=== PATIENT | male | born 1955 | race Caucasian/White ===

== ENCOUNTER 2016-07-20 05:46 | Inpatient (IN) | payer OTHER ==
[~2016-07-20] VITALS: Ht 188 cm; Wt 217.7 kg
[2016-07-20 05:46] VITALS: BP_SYST 165
[2016-07-20] MEDS ORDERED: LISI40TA4 PO (06:19)
[2016-07-20] MEDS ORDERED: GLU500 PO (06:19)
[2016-07-20] MEDS ORDERED: HYDR25TA4 PO (06:20)
[2016-07-20] MEDS ORDERED: IPRATROPIUM/ALBUTEROL SULFATE 3 ML AMPUL.NEB INH ONE (06:30)
[2016-07-20 07:14] LABS: BASOPHILS # (AUTO) 0.1 K/uL (0.0-0.2); BASOPHILS % (AUTO) 1.2 % (0.0-2.0); EOSINOPHILS # (AUTO) 0.1 K/uL (0.0-0.4); EOSINOPHILS % (AUTO) 0.8 % (0.0-4.0); HEMATOCRIT 47.6 % (36-54); HEMOGLOBIN 15.6 g/dL (14.0-18.0); LYMPHOCYTES % (AUTO) 27.7 % (20.5-51.5); MEAN CORPUSCULAR HEMOGLOBIN 28 pg (27-31); MEAN CORPUSCULAR HGB CONC 33 % (32-36); MEAN CORPUSCULAR VOLUME 85 fL (79.0-98.0); MONOCYTES # (AUTO) 0.5 K/uL (0.0-1.0); MONOCYTES % (AUTO) 6.2 % (1.7-9.3); NEUTROPHILS # (AUTO) 4.7 K/uL (1.8-7.7); NEUTROPHILS % (AUTO) 64.1 % (40.0-70.0); PLATELET COUNT (AUTO) 213 K/uL (130-430); RED CELL DISTRIBUTION WIDTH 14.2 % (9.0-15.0); WHITE BLOOD COUNT (AUTO) 7.4 K/uL (4.8-10.8)
[2016-07-20 08:01] LABS: CALCIUM 9.4 mg/dL (8.4-11.0); CREATININE 1.11 mg/dL (0.55-1.30)
[2016-07-20 08:05] LABS: TOTAL BILIRUBIN 0.9 mg/dL (0.0-1.0); TOTAL PROTEIN, SERUM 7.1 g/dL (6.4-8.3)
[2016-07-20] MEDS ORDERED: NITROGLYCERIN 1 INCH (GM) OINT. TP ONE (08:15)
[2016-07-20] MEDS ORDERED: ASPIRIN 81 MG TAB.CHEW PO ONE (08:15)
[2016-07-20] MEDS ORDERED: FUROSEMIDE 20 MG/2 ML VIAL IVP ONE (08:30)
[2016-07-20 09:34] VITALS: BP_SYST 163
[2016-07-20] MEDS ORDERED: INSULIN REGULAR, HUMAN 100 UNITS/ML, 10 ML VIAL (novoLIN R) SUBCUT PRN (11:00)
[2016-07-20] MEDS ORDERED: DEXTROSE 50% JECT 50 ML DISP.SYRIN IVP PRN (11:00)
[2016-07-20] MEDS ORDERED: *HEPARIN PER PHARMACY XX ONE (11:00)
[2016-07-20 11:28] VITALS: BP_SYST 132
[2016-07-20] MEDS ORDERED: HEPARIN SODIUM,PORCINE 2000 UNITS/0.4 ML BOLUS IVP PRN (11:45)
[2016-07-20] MEDS ORDERED: GLUCOSE 15 GM GEL (in 37.5 GM TUBE) PO PRN ×2 (11:45)
[2016-07-20] MEDS ORDERED: HEPARIN SODIUM,PORCINE 5000 UNITS/ML VIAL IV ONE (11:45)
[2016-07-20] MEDS ORDERED: DEXTROSE 50%-WATER 50 ML DISP.SYRIN IVP PRN ×2 (11:45)
[2016-07-20] MEDS ORDERED: METOPROLOL TARTRATE 25 MG TABLET PO ONE (11:45)
[2016-07-20] MEDS: HEPARIN 25,000 UNITS in 250 ML PREMIX IV PRN ×2 (13:35→20:24)
[2016-07-20] MEDS: ACETAMINOPHEN 325 MG TABLET PO PRN ×2 (15:07→20:53)
[2016-07-20 15:38] VITALS: BP_SYST 141
[2016-07-20] MEDS: HEPARIN SODIUM,PORCINE 3000 UNITS/0.6 ML BOLUS IVP PRN (20:22)
[2016-07-20 20:35] VITALS: BP_SYST 129
[2016-07-20] MEDS: METOPROLOL TARTRATE 25 MG TABLET PO SCH (20:37)
[2016-07-21] VITALS (8 sets, daily range): BP systolic 117–167
[2016-07-21] MEDS: HEPARIN SODIUM,PORCINE 3000 UNITS/0.6 ML BOLUS IVP PRN (02:34)
[2016-07-21] MEDS: HEPARIN 25,000 UNITS in 250 ML PREMIX IV PRN ×2 (02:35→07:35)
[2016-07-21] MEDS: ACETAMINOPHEN 325 MG TABLET PO PRN (06:46)
[2016-07-21] MEDS: ASPIRIN 325 MG TABLET (ECOTRIN) PO SCH (08:37)
[2016-07-21] MEDS: LISINOPRIL 20 MG TABLET PO SCH (08:40)
[2016-07-21] MEDS: METOPROLOL TARTRATE 25 MG TABLET PO SCH ×2 (08:41→21:19)
[2016-07-21] MEDS ORDERED: PANTOPRAZOLE SODIUM 40 MG TAB PO ONE (11:15)
[2016-07-22] VITALS: BP_SYST 142
[2016-07-22 05:07] VITALS: BP_SYST 139
[2016-07-22] MEDS: METOPROLOL TARTRATE 25 MG TABLET PO SCH (08:40)
[2016-07-22] MEDS: LISINOPRIL 20 MG TABLET PO SCH (08:41)
[2016-07-22] MEDS: ASPIRIN 325 MG TABLET (ECOTRIN) PO SCH (08:41)
[2016-07-22] MEDS ORDERED: PANTOPRAZOLE SODIUM 40 MG TAB PO SCH (09:00)
[2016-07-22 09:27] VITALS: BP_SYST 156
[2016-07-22 11:06] VITALS: BP_SYST 156
[2016-07-22 11:57] VITALS: BP_SYST 140
== END 2016-07-22 13:00 | disposition home or self-care (01) | DRG 292 ==
LOC: SED 05:46 → STU 08:31
PROVIDERS: ADMIT Internal Medicine Hospice and Palliative Medicine; ATTEND Internal Medicine Hospice and Palliative Medicine
DX: I11.0 Hypertensive heart disease with heart failure (principal); J98.11 Atelectasis; Z68.44 Body mass index [BMI] 60.0-69.9, adult; I50.31 Acute diastolic (congestive) heart failure; E11.9 Type 2 diabetes mellitus without complications; E66.01 Morbid (severe) obesity due to excess calories; K21.9 Gastro-esophageal reflux disease without esophagitis; Z87.891 Personal history of nicotine dependence; Z74.01 Bed confinement status; Z79.84 Long term (current) use of oral hypoglycemic drugs; Z79.899 Other long term (current) drug therapy; Z80.9 Family history of malignant neoplasm, unspecified; Z82.49 Family history of ischemic heart disease and other diseases of the circulatory system
CPT/HCPCS: 36415; 71010; 80053; 82962; 83880; 84484; 85025; 85379; 85730-TC; 93005; 93306; 93970; 94640; 99285; J1644; J1815; J1940